=== PATIENT | male | born 1935 | race Caucasian/White ===

== ENCOUNTER 2017-07-28 19:44 | Emergency (ER) | payer OTHER ==
[2017-07-28 20:00] VITALS: BP 150/70; PULSE 76; TEMP 98; BMI 28.2
[2017-07-28] MEDS ORDERED: DIPHTH,PERTUSS(ACELL),TET 0.5 ML DISP.SYRIN IM ONE (21:46)
--- NOTE | 2017-07-28 21:52 | PDOC ---
History of Present Illness - General Chief Complaint: Wound Stated Complaint: WOUND Time Seen by Provider: 07/28/17 21:20 History Source: Patient Exam Limitations: No Limitations - History of Present Illness Initial Comments: 07/28/17 21:51 This is an 82-year-old male without significant past medical history who presents to the emergency department with thermal burn sustained to the webbing of his left hand between the fourth and fifth digits. Patient states that approximately 10 days ago he was using acetylene torch cutting metal with hot metal fell into his glove and caught in the webbing between his fingers. He applied ice cold water to the wound immediately and thought things were get better so did not seek Care. Patient now complains of increased pain to burn site. He denies any drainage, redness, fevers, chills, streaking. Past History - Past Medical History Allergies/Adverse Reactions: Allergies Allergy/AdvReac Type Severity Reaction Status Date / Time Sulfa (Sulfonamide Allergy Verified 07/28/17 19:55 Antibiotics) Home Medications: Ambulatory Orders Lisinopril [Zestril] 2.5 mg PO BID 11/08/11 Simvastatin 20 mg PO HS 11/08/11 Allopurinol [Zyloprim -] 100 mg PO PRN PRN 01/16/15 Anemia: No Asthma: No Cancer: Yes (BLADDER) Cardiac Disorders: No CVA: No COPD: No CHF: No Dementia: No Diabetes: No GI Disorders: No Disorders: Yes (BLADDER CA) HTN: Yes Hypercholesterolemia: Yes Liver Disease: No Seizures: No Thyroid Disease: No Other medical history: rheumatic fever as a child - Surgical History Abdominal Surgery: No Appendectomy: No Cardiac Surgery: No Cholecystectomy: No Lung Surgery: No Neurologic Surgery: No Orthopedic Surgery: No - Immunization History Immunization Up to Date: No - Suicide/Smoking/Psychosocial Hx Smoking Status: No Smoking History: Former smoker Years of Tobacco Use: 40 Have you smoked in the past 12 months: No Number of Cigarettes Smoked Daily: 0 If you are a former smoker, when did you quit?: 2005 Cigars Per Day: 5 Information on smoking cessation initiated: No Hx Alcohol Use: No Drug/Substance Use Hx: No Substance Use Type: None Hx Substance Use Treatment: No Review of Systems - Review of Systems Able to Perform ROS?: Yes Is the patient limited Ivorian proficient: No Constitutional: No: Symptoms Reported HEENTM: No: Symptoms Reported Respiratory: No: Symptoms reported Cardiac (ROS): No: Symptoms Reported ABD/GI: No: Symptoms Reported : No: Symptoms Reported Musculoskeletal: No: Symptoms Reported Integumentary: Yes: See HPI Neurological: No: Symptoms reported *Physical Exam - Vital Signs Last Vital Signs Temp Pulse Resp BP Pulse Ox 98 F 76 18 150/70 98 07/28/17 19:58 07/28/17 19:58 07/28/17 19:58 07/28/17 19:58 07/28/17 19:58 - Physical Exam General Appearance: Yes: Appropriately Dressed. No: Apparent Distress Respiratory/Chest: positive: Lungs Clear, Normal Breath Sounds. negative: Respiratory Distress, Accessory Muscle Use Integumentary: positive: Normal Color, Dry, Warm, Other (resolving thermal burn to webbing of left hand between 4th and 5th digits. No streaking, erythema, drainagepresent.) Medical Decision Making - Medical Decision Making 07/28/17 21:54 A/P: 82-year-old male without past medical history with thermal burn sustained to the webbing of his left hand between fourth and fifth digits. Superficial thermal burn sustained 10 days ago present. No drainage or discharge from site. No erythema present. No streaking noted to palmar or dorsal surface of the hand. Patient is ALLERGIC to sulfa therefore will apply polymyxin dressing to hand. Tetanus booster Follow-up with primary doctor as an outpatient Discharge *DC/Admit/Observation/Transfer Diagnosis at time of Disposition: Thermal burn - Discharge Dispostion Disposition: HOME Condition at time of disposition: Stable Admit: No - Referrals Referrals: Cl Bales MD [Primary Care Provider] - - Patient Instructions Additional Instructions: Apply polymyxin ointment to hand twice a day. Although apply a thin layer to the area. After you apply polymyxin, cover the wound. You received a tetanus booster today. Make an appointment with your primary doctor for follow-up in 3 days. Return to emergency department for increased pain, redness, swelling, inability to move fingers, or any other concerns. - Post Discharge Activity
[2017-07-29] MEDS ORDERED: BACITRACIN/POLYMYXIN B SULFATE 15 GM TUBE TP ONE (21:49)
== END 2017-07-28 22:10 | disposition home or self-care (01) ==
LOC: JERFT 19:44
PROC: 3E0234Z Introduction of Serum, Toxoid and Vaccine into Muscle, Percutaneous Approach (ICD-10-PCS; principal; 2017-07-28)
PROC: 2W2FX4Z Dressing of Left Hand using Bandage (ICD-10-PCS; 2017-07-28)
DX: T23.002A Burn of unspecified degree of left hand, unspecified site, initial encounter (principal); X17.XXXA Contact with hot engines, machinery and tools, initial encounter; Y93.H3 Activity, building and construction; Y92.89 Other specified places as the place of occurrence of the external cause; Y99.8 Other external cause status
CPT/HCPCS: 16020; 90471; 90715; 99281-25

== ENCOUNTER 2019-04-13 17:28 | Emergency (ER) | payer OTHER ==
--- NOTE | 2019-04-13 17:40 | PDOC ---
Rapid Medical Evaluation Time Seen by Provider: 04/13/19 17:37 Medical Evaluation: Allergies Allergy/AdvReac Type Severity Reaction Status Date / Time Sulfa (Sulfonamide Allergy Verified 07/28/17 19:55 Antibiotics) 04/13/19 17:37 CC: right flank pain s/p direct trauma 04/10 PE: right flank tenderness Orders: urine, sono Patient will proceed to ED for further evaluation. Discharge Disposition - Diagnosis Flank pain - Referrals - Patient Instructions - Post Discharge Activity
[2019-04-13 17:47] VITALS: BP 148/98; PULSE 70; TEMP 98.2; BMI 25.8
[2019-04-13 18:21] LABS: EPI CELLS 1.8 /HPF (0-5/HPF); HYALINE CASTS 10 /lpf (0-8); PH,URINE 5.5 (5.0-8.0); URINE APPEARANCE TURBID; URINE BACTERIA 24.9 /hpf (NEGATIVE); URINE BILIRUBIN NEGATIVE (NEGATIVE); URINE COLOR YELLOW; URINE GLUCOSE (UA) NEGATIVE (NEGATIVE); URINE KETONE NEGATIVE (NEGATIVE); URINE LEUK ESTERASE 3+ (NEGATIVE); URINE NITRITE NEGATIVE (NEGATIVE); URINE PROTEIN 2+ (NEGATIVE); URINE UROBILINOGEN 0.2 mg/dL (0.2-1.0); URINE WBC 2539 /hpf (0-5)
[2019-04-13 18:49] LABS: URINE RBC 427.5 /hpf (0-4)
[2019-04-13 19:10] LABS: EOS % 3.8 % (0-4.5); HEMOGLOBIN 13.6 GM/dL (11.7-16.9); MCH 30.8 pg (25.7-33.7); MCHC 33.2 g/dl (32.0-35.9); MEAN CELL VOLUME 92.7 fl (80-96); MEAN PLT VOLUME 9.1 fl (7.5-11.1); MONO % 11.2 % (3.8-10.2); PLATELET COUNT 180 K/MM3 (134-434); RBC 4.43 M/mm3 (4.00-5.60); RDW 12.9 % (11.9-15.9); WHITE BLOOD COUNT 8.9 K/mm3 (4.0-10.0)
[2019-04-13 20:12] LABS: ALBUMIN 3.8 g/dl (3.4-5.0); BILIRUBIN,TOTAL 0.4 mg/dL (0.2-1); BLOOD UREA NITROGEN 20.5 mg/dL (7-18); CALCIUM 8.9 mg/dL (8.5-10.1); CREATININE 1.5 mg/dL (0.55-1.3); POTASSIUM 4.4 mmol/L (3.5-5.1); TOT PROT 7.5 g/dl (6.4-8.2)
--- NOTE | 2019-04-13 20:40 | PDOC ---
History of Present Illness - General Chief Complaint: Back Pain Stated Complaint: R/LOWER/BACK/PAIN Time Seen by Provider: 04/13/19 17:37 - History of Present Illness Initial Comments: 04/13/19 22:01 83-year-old male with a past medical history significant of dyslipidemia and hypertension also distant history of bladder cancer presents for evaluation of right-sided flank pain. He states about 2 days ago he was in a golf cart which almost tripped over in the process he had his right flank into the bar of the golf cart which acted as a handle of his seat. No hematuria. The patient has intermittent right-sided flank pain relieved with warm baths and rest exacerbated with activity. Past History - Past Medical History Allergies/Adverse Reactions: Allergies Allergy/AdvReac Type Severity Reaction Status Date / Time Sulfa (Sulfonamide Allergy Verified 04/13/19 17:38 Antibiotics) Home Medications: Ambulatory Orders Lisinopril [Zestril] 2.5 mg PO BID 11/08/11 Simvastatin 20 mg PO HS 11/08/11 Allopurinol [Zyloprim -] 100 mg PO PRN PRN 01/16/15 Cyclobenzaprine HCl [Flexeril 10 mg] 10 mg PO HS PRN #10 tablet 04/13/19 Anemia: No Asthma: No Cancer: Yes (BLADDER) Cardiac Disorders: No CVA: No COPD: No CHF: No Dementia: No Diabetes: No GI Disorders: No Disorders: Yes (BLADDER CA) HTN: Yes Hypercholesterolemia: Yes Liver Disease: No Seizures: No Thyroid Disease: No - Surgical History Abdominal Surgery: No Appendectomy: No Cardiac Surgery: No Cholecystectomy: No Lung Surgery: No Neurologic Surgery: No Orthopedic Surgery: No - Immunization History Immunization Up to Date: Yes - Psycho Social/Smoking Cessation Hx Smoking Status: No Smoking History: Never smoked Years of Tobacco Use: 40 Have you smoked in the past 12 months: No Number of Cigarettes Smoked Daily: 0 If you are a former smoker, when did you quit?: 2004 Cigars Per Day: 5 Hx Alcohol Use: No Drug/Substance Use Hx: No Substance Use Type: None Hx Substance Use Treatment: No Review of Systems - Review of Systems Musculoskeletal: Yes: Back Pain *Physical Exam - Vital Signs Last Vital Signs Temp Pulse Resp BP Pulse Ox 98.2 F 70 17 148/98 95 04/13/19 17:38 04/13/19 17:38 04/13/19 17:38 04/13/19 17:38 04/13/19 19:59 - Physical Exam Comments: 04/13/19 22:02 GENERAL: The patient is awake, alert, and fully oriented, in no acute distress. HEAD: Normal with no signs of trauma. EYES: sclera anicteric, conjunctiva clear. ENT: Ears normal NECK: Normal range of motion LUNGS: Breath sounds equal, clear to auscultation bilaterally. No wheezes, and no crackles. HEART: S1 and S2 without murmur, rub or gallop. ABDOMEN: Soft, nontender, normoactive bowel sounds. No guarding, no rebound. No masses. There is mild right-sided flank pain and muscular spasm. EXTREMITIES: Normal range of motion, no edema. No clubbing or cyanosis. No cords, erythema, or tenderness. NEUROLOGICAL: Cranial nerves II through XII grossly intact. Normal speech, normal gait. PSYCH: Normal mood, normal affect. SKIN: Warm, Dry, normal turgor, no rashes or lesions noted. ED Treatment Course - LABORATORY CBC & Chemistry Diagram: 04/13/19 19:00 04/13/19 19:00 - ADDITIONAL ORDERS Additional order review: Laboratory Results 04/13/19 04/13/19 19:00 17:58 Sodium 143 Potassium 4.4 Chloride 108 H Carbon Dioxide 30 Anion Gap 5 L BUN 20.5 H Creatinine 1.5 H Est GFR (CKD-EPI)AfAm 49.89 Est GFR (CKD-EPI)NonAf 43.04 Random Glucose 174 H Calcium 8.9 Total Bilirubin 0.4 AST 20 ALT 14 Alkaline Phosphatase 79 Total Protein 7.5 Albumin 3.8 Urine Color Yellow Urine Appearance Turbid Urine pH 5.5 Ur Specific [place] 1.017 Urine Protein 2+ H Urine Glucose (UA) Negative Urine Ketones Negative Urine Blood 3+ H Urine Nitrite Negative Urine Bilirubin Negative Urine Urobilinogen 0.2 Ur Leukocyte Esterase 3+ H Urine WBC (Auto) 2539 Urine RBC (Auto) 427.5 Urine Casts (Auto) 10 U Epithel Cells (Auto) 1.8 Urine Bacteria (Auto) 24.9 04/13/19 19:00 RBC 4.43 MCV 92.7 MCHC 33.2 RDW 12.9 MPV 9.1 Neutrophils % 59.0 Lymphocytes % 25.0 Monocytes % 11.2 H Eosinophils % 3.8 Basophils % 1.0 - RADIOLOGY Radiology Studies Ordered: Category Date Time Status ABDOMEN & PELVIS CT WITH CONTR [CT] Stat CT Scan 04/13/19 18:[address] WITH CONTRAST [CT] Stat CT Scan 04/13/19 18:40 Taken CHEST - PA [RAD] Stat Radiology 04/13/19 18:07 Completed RIBS RIGHT SIDE [RAD] Stat Radiology 04/13/19 18:07 Completed Medical Decision Making - Medical Decision Making 04/13/19 20:40 Discussed case with emergency room attending. GFR normal patient okay to receive IV contrast. 04/13/19 22:03 Patient was made aware CAT scan results he will follow-up with his primary care physician. Discharge - Discharge Information Problems reviewed: Yes Clinical Impression/Diagnosis: Flank pain, Contusion, flank Condition: Stable Disposition: HOME - Admission No - Follow up/Referral Referrals: Cl Bales MD [Primary Care Provider] - - Patient Discharge Instructions Additional Instructions: Return to the emergency room for worsening symptoms. Continue your regular medication as directed. Please follow-up with your primary care physician for further evaluation and treatment options. Tylenol for pain. Muscle relaxer will also help with your pain. Please take that as directed. - Post Discharge Activity
== END 2019-04-13 22:10 | disposition home or self-care (01) ==
LOC: JER 17:28 → JERFT 17:28
DX: S30.1XXA Contusion of abdominal wall, initial encounter (principal); V86.99XA Unspecified occupant of other special all-terrain or other off-road motor vehicle injured in nontraffic accident, initial encounter; Y93.53 Activity, golf; Y92.39 Other specified sports and athletic area as the place of occurrence of the external cause; Y99.8 Other external cause status; I10 Essential (primary) hypertension; E78.00 Pure hypercholesterolemia, unspecified; Z85.51 Personal history of malignant neoplasm of bladder; Z88.2 Allergy status to sulfonamides
CPT/HCPCS: 36415; 71045-TC-FY; 71101-TC-RT-FY; 71260-TC; 74177-TC; 80053; 81003; 85025; 99283-25

== ENCOUNTER 2019-05-06 12:55 | Emergency (ER) | payer OTHER ==
[2019-05-06 13:08] VITALS: PULSE 62; BMI 25.8
[2019-05-06] MEDS ORDERED: DIPHTH,PERTUSS(ACELL),TET 0.5 ML DISP.SYRIN IM ONE ×2 (13:22→13:26)
--- NOTE | 2019-05-06 14:36 | PDOC ---
History of Present Illness - General Chief Complaint: Laceration Stated Complaint: RT HEAD/EAR CUT Time Seen by Provider: 05/06/19 13:14 - History of Present Illness Initial Comments: 05/06/19 14:40 84-year-old male with a past medical history of hypertension and dyslipidemia presents after a fall. States he fell while getting into his truck injuring his right ear Past History - Past Medical History Allergies/Adverse Reactions: Allergies Allergy/AdvReac Type Severity Reaction Status Date / Time Sulfa (Sulfonamide Allergy Verified 05/06/19 13:08 Antibiotics) Home Medications: Ambulatory Orders Lisinopril [Zestril] 2.5 mg PO BID 11/08/11 Simvastatin 20 mg PO HS 11/08/11 Allopurinol [Zyloprim -] 100 mg PO PRN PRN 01/16/15 Cyclobenzaprine HCl [Flexeril 10 mg] 10 mg PO HS PRN #10 tablet 04/13/19 Anemia: No Asthma: No Cancer: Yes (BLADDER) Cardiac Disorders: No CVA: No COPD: No CHF: No Dementia: No Diabetes: No GI Disorders: No Disorders: Yes (BLADDER CA) HTN: Yes Hypercholesterolemia: Yes Liver Disease: No Seizures: No Thyroid Disease: No - Surgical History Abdominal Surgery: No Appendectomy: No Cardiac Surgery: No Cholecystectomy: No Lung Surgery: No Neurologic Surgery: No Orthopedic Surgery: No - Immunization History Immunization Up to Date: No - Psycho Social/Smoking Cessation Hx Smoking Status: No Smoking History: Never smoked Years of Tobacco Use: 40 Have you smoked in the past 12 months: No Number of Cigarettes Smoked Daily: 0 If you are a former smoker, when did you quit?: 2005 Cigars Per Day: 5 Information on smoking cessation initiated: No Hx Alcohol Use: No Drug/Substance Use Hx: No Substance Use Type: None Hx Substance Use Treatment: No Review of Systems - Review of Systems HEENTM: Yes: Ear Pain *Physical Exam - Vital Signs Last Vital Signs Temp Pulse Resp BP Pulse Ox 98.0 F 62 16 98/78 100 05/06/19 13:04 05/06/19 13:04 05/06/19 13:04 05/06/19 13:04 05/06/19 13:04 - Physical Exam Comments: 05/06/19 14:40 GENERAL: The patient is awake, alert, and fully oriented, in no acute distress. HEAD: Normal with no signs of trauma. EYES: sclera anicteric, conjunctiva clear. ENT: There is a through and through laceration of the left pinna NECK: Normal range of motion LUNGS: Breath sounds equal, clear to auscultation bilaterally. No wheezes, and no crackles. HEART: S1 and S2 without murmur, rub or gallop. ABDOMEN: Soft, nontender, normoactive bowel sounds. No guarding, no rebound. No masses. EXTREMITIES: Normal range of motion, no edema. No clubbing or cyanosis. No cords, erythema, or tenderness. NEUROLOGICAL: Cranial nerves II through XII grossly intact. Normal speech, normal gait. PSYCH: Normal mood, normal affect. SKIN: Warm, Dry, normal turgor, no rashes or lesions noted. ED Treatment Course - RADIOLOGY Radiology Studies Ordered: Category Date Time Status HEAD CT WITHOUT CONTRAST [CT] Stat CT Scan 05/06/19 13:21 Completed - Medications Given in the ED: ED Medications Discontinued Medications Generic Name Dose Route Start Last Admin Trade Name Freq PRN Reason Stop Dose Admin Diphtheria/Tetanus/Acell Pertussis 0.5 ml 05/06/19 13:22 05/06/19 13:26 Boostrix - IM 05/06/19 13:23 0.5 ml .ONCE ONE Administration Medical Decision Making - Medical Decision Making 05/06/19 14:32 [facility] transfer center called transfer from plastic surgery 05/06/19 14:39 Dr Hou accepting plastics at [facility] Discharge - Discharge Information Problems reviewed: Yes Clinical Impression/Diagnosis: Laceration of right ear Condition: Stable Disposition: TRANSFER ACUTE CARE/OTHER HOSP - Admission No - Follow up/Referral Referrals: Cl Bales MD [Primary Care Provider] - - Patient Discharge Instructions - Post Discharge Activity
[2019-05-06 15:43] VITALS: BP 134/82; TEMP 98.1
== END 2019-05-06 15:49 | disposition short-term general hospital (02) ==
LOC: JERFT 12:55
PROC: 3E0234Z Introduction of Serum, Toxoid and Vaccine into Muscle, Percutaneous Approach (ICD-10-PCS; principal; 2019-05-06)
DX: S01.311A Laceration without foreign body of right ear, initial encounter (principal); W18.39XA Other fall on same level, initial encounter; Y93.89 Activity, other specified; Y92.410 Unspecified street and highway as the place of occurrence of the external cause; E78.5 Hyperlipidemia, unspecified; I10 Essential (primary) hypertension; Z87.891 Personal history of nicotine dependence; E78.00 Pure hypercholesterolemia, unspecified; Z85.51 Personal history of malignant neoplasm of bladder
CPT/HCPCS: 70450-TC; 90715; 99283-25

== ENCOUNTER 2019-05-13 16:26 | Emergency (ER) | payer OTHER ==
--- NOTE | 2019-05-13 16:41 | PDOC ---
Rapid Medical Evaluation Time Seen by Provider: 05/13/19 16:39 Medical Evaluation: Allergies Allergy/AdvReac Type Severity Reaction Status Date / Time Sulfa (Sulfonamide Allergy Verified 05/06/19 13:08 Antibiotics) 05/13/19 16:40 Patient c/o: here for suture removal to right ear Patient on brief exam: noted complex lac with sutures to rt pinna, surrounding skin intact Patient ordered for: none Patient to proceed to the ED Discharge Disposition - Diagnosis Visit for wound check - Discharge Dispostion Disposition: HOME Condition at time of disposition: Stable - Referrals Referrals: Cl Bales MD [Primary Care Provider] - - Patient Instructions Additional Instructions: Return to plastic surgery where the sutures were placed for further wound care management. You may return to the emergency room at any time for further evaluation and treatment should you require our services however these sutures appear to be absorbable and are unable to be removed in this emergency room - Post Discharge Activity
[2019-05-13 16:44] VITALS: BP 130/61; PULSE 78; TEMP 97.8; BMI 25.8
--- NOTE | 2019-05-13 17:03 | PDOC ---
History of Present Illness - General Chief Complaint: Suture/Staple Removal (other) Stated Complaint: STITCHES REMOVAL Time Seen by Provider: 05/13/19 16:39 - History of Present Illness Initial Comments: 05/13/19 17:01 84-year-old male seen in our emergency room last week and transferred for plastic surgery purposes presents for suture removal from the right ear. Sutures placed 7 days ago Past History - Past Medical History Allergies/Adverse Reactions: Allergies Allergy/AdvReac Type Severity Reaction Status Date / Time Sulfa (Sulfonamide Allergy Verified 05/13/19 16:43 Antibiotics) Home Medications: Ambulatory Orders Lisinopril [Zestril] 2.5 mg PO BID 11/08/11 Simvastatin 20 mg PO HS 11/08/11 Allopurinol [Zyloprim -] 100 mg PO PRN PRN 01/16/15 Cyclobenzaprine HCl [Flexeril 10 mg] 10 mg PO HS PRN #10 tablet 04/13/19 Anemia: No Asthma: No Cancer: Yes (BLADDER) Cardiac Disorders: No CVA: No COPD: No CHF: No Dementia: No Diabetes: No GI Disorders: No Disorders: Yes (BLADDER CA) HTN: Yes Hypercholesterolemia: Yes Liver Disease: No Seizures: No Thyroid Disease: No - Surgical History Abdominal Surgery: No Appendectomy: No Cardiac Surgery: No Cholecystectomy: No Lung Surgery: No Neurologic Surgery: No Orthopedic Surgery: No - Immunization History Immunization Up to Date: No - Psycho Social/Smoking Cessation Hx Smoking Status: No Smoking History: Never smoked Years of Tobacco Use: 40 Have you smoked in the past 12 months: No Number of Cigarettes Smoked Daily: 0 If you are a former smoker, when did you quit?: 2005 Cigars Per Day: 5 Information on smoking cessation initiated: No Hx Alcohol Use: No Drug/Substance Use Hx: No Substance Use Type: None Hx Substance Use Treatment: No Review of Systems - Review of Systems Constitutional: No: Fever *Physical Exam - Vital Signs Last Vital Signs Temp Pulse Resp BP Pulse Ox 97.8 F 78 19 130/61 99 05/13/19 16:40 05/13/19 16:40 05/13/19 16:40 05/13/19 16:40 05/13/19 16:40 - Physical Exam 05/13/19 17:01 There is a longitudinal laceration on the right pinna. There are no visible sutures there appears to be Monocryl peaking out from under the skin 05/13/19 17:02 The wound however is healing well with normal surrounding skin color and temperature Medical Decision Making - Medical Decision Making 05/13/19 17:01 The sutures appear to be absorbable there are no details the grabber knots the cut that are visible. I have sent this patient back to plastic surgery at [facility] where sutures were placed Discharge - Discharge Information Problems reviewed: Yes Clinical Impression/Diagnosis: Visit for wound check Condition: Stable Disposition: HOME - Admission No - Follow up/Referral Referrals: Cl Bales MD [Primary Care Provider] - - Patient Discharge Instructions Additional Instructions: Return to plastic surgery where the sutures were placed for further wound care management. You may return to the emergency room at any time for further evaluation and treatment should you require our services however these sutures appear to be absorbable and are unable to be removed in this emergency room - Post Discharge Activity
== END 2019-05-13 17:09 | disposition home or self-care (01) ==
LOC: JERFT 16:26
DX: Z48.01 Encounter for change or removal of surgical wound dressing (principal)
CPT/HCPCS: 99281-25

== ENCOUNTER 2019-05-26 10:32 | Emergency (ER) | payer OTHER ==
[2019-05-26 10:56] VITALS: TEMP 98.5; BMI 25.4
--- NOTE | 2019-05-26 11:48 | PDOC ---
History of Present Illness - General Chief Complaint: Ear Problem Stated Complaint: WOUND/EAR PROBLEM Time Seen by Provider: 05/26/19 10:59 - History of Present Illness Initial Comments: 05/26/19 11:46 84-year-old male presents for evaluation of right ear pain. Seen for through and through laceration transferred to [facility] for plastic surgery he was repaired with dissolvable sutures he comes today for suspected infection. Increasing pain over the last 2 days without systemic symptoms Past History - Past Medical History Allergies/Adverse Reactions: Allergies Allergy/AdvReac Type Severity Reaction Status Date / Time Sulfa (Sulfonamide Allergy Verified 05/26/19 10:53 Antibiotics) Home Medications: Ambulatory Orders Lisinopril [Zestril] 2.5 mg PO BID 11/08/11 Simvastatin 20 mg PO HS 11/08/11 Allopurinol [Zyloprim -] 100 mg PO PRN PRN 01/16/15 Cyclobenzaprine HCl [Flexeril 10 mg] 10 mg PO HS PRN #10 tablet 04/13/19 Clindamycin Oral Solution [Cleocin Oral Solution -] 300 mg PO Q8H 7 Days #280 ml 05/26/19 Anemia: No Asthma: No Cancer: Yes (BLADDER) Cardiac Disorders: No CVA: No COPD: No CHF: No Dementia: No Diabetes: No GI Disorders: No Disorders: Yes (BLADDER CA) HTN: Yes Hypercholesterolemia: Yes Liver Disease: No Seizures: No Thyroid Disease: No - Surgical History Abdominal Surgery: No Appendectomy: No Cardiac Surgery: No Cholecystectomy: No Lung Surgery: No Neurologic Surgery: No Orthopedic Surgery: No - Immunization History Immunization Up to Date: No - Psycho Social/Smoking Cessation Hx Smoking Status: No Smoking History: Never smoked Years of Tobacco Use: 40 Have you smoked in the past 12 months: No Number of Cigarettes Smoked Daily: 0 If you are a former smoker, when did you quit?: 2004 Cigars Per Day: 5 Hx Alcohol Use: No Drug/Substance Use Hx: No Substance Use Type: None Hx Substance Use Treatment: No Review of Systems - Review of Systems Constitutional: No: Fever HEENTM: Yes: Ear Pain *Physical Exam - Vital Signs Last Vital Signs Temp Pulse Resp BP Pulse Ox 98.5 F 60 16 145/50 L 98 05/26/19 10:54 05/26/19 10:54 05/26/19 10:54 05/26/19 10:54 05/26/19 10:54 - Physical Exam 05/26/19 11:47 The right pinna is healing well. There is exposed Monocryl mild erythema warmth and induration. Mild sensitivity. Your canal and tympanic membrane are normal Medical Decision Making - Medical Decision Making 05/26/19 11:47 Patient did have a postop course of Augmentin which he stopped and restarted I will place him on clindamycin and have him follow-up with his surgeon Discharge - Discharge Information Problems reviewed: Yes Clinical Impression/Diagnosis: Cellulitis Condition: Stable Disposition: HOME - Admission No - Additional Discharge Information Prescriptions: Clindamycin Oral Solution [Cleocin Oral Solution -] 300 mg PO Q8H 7 Days #280 ml - Follow up/Referral - Patient Discharge Instructions Additional Instructions: Please take the clindamycin as directed. Return to the emergency room for worsening symptoms and without fail please follow-up with your ear surgeon in 2 to 3 days for further evaluation and treatment options. - Post Discharge Activity
[2019-05-26 12:22] VITALS: BP 142/57; PULSE 63
== END 2019-05-26 12:22 | disposition home or self-care (01) ==
LOC: JERFT 10:32
DX: Z48.01 Encounter for change or removal of surgical wound dressing (principal); L03.90 Cellulitis, unspecified; Z88.2 Allergy status to sulfonamides; Z87.891 Personal history of nicotine dependence
CPT/HCPCS: 99281-25

== ENCOUNTER 2019-06-03 04:48 | Emergency (ER) | payer OTHER ==
[2019-06-03 05:10] VITALS: BP 147/68; PULSE 74; TEMP 98.3; BMI 25.8
--- NOTE | 2019-06-03 06:10 | PDOC ---
*Physical Exam - Vital Signs Last Vital Signs Temp Pulse Resp BP Pulse Ox 98.3 F 74 18 147/68 95 06/03/19 05:07 06/03/19 05:07 06/03/19 05:07 06/03/19 05:07 06/03/19 05:07 Medical Decision Making - Medical Decision Making 06/03/19 06:10 Patient seen by the advanced practice provider under my direct supervision. Ancillary testing reviewed as necessary. I agree with plan as outlined by the advanced practice provider. Discharge - Discharge Information Problems reviewed: Yes Clinical Impression/Diagnosis: Periorbital cellulitis of left eye Condition: Stable Disposition: HOME - Additional Discharge Information Prescriptions: Allopurinol [Zyloprim -] 100 mg PO DAILY #20 tab Olopatadine HCl 2.5 ml OP BID #1 kit Simvastatin 20 mg PO DAILY #15 tablet - Follow up/Referral Referrals: Cl Bales MD [Primary Care Provider] - - Patient Discharge Instructions Patient Printed Discharge Instructions: DI for Orbital Cellulitis Additional Instructions: Your Discharge Instructions: You must call primary care physician within 24 hours to arrange follow-up. Return to the Emergency Department with any new, persistent or worsening symptoms, for fever, chills, SOB, dizziness or any other concerning changes that may occur. You must follow-up with an authorization rep in 24 to 48 hours. Use the eyedrops as prescribed take some Benadryl for the itching if symptoms are worsening, you need the authorization rep immediately. - Post Discharge Activity
[2019-06-03] MEDS ORDERED: FLUORESCEIN NA 1 EA STRIP OS ONE (06:14)
--- NOTE | 2019-06-03 06:14 | PDOC ---
History of Present Illness - General Chief Complaint: Eye Problem Stated Complaint: EAR INFECTION History Source: Patient Exam Limitations: No Limitations - History of Present Illness Initial Comments: 06/03/19 05:57 Patient is a 84 year old male with h/o HTN, HLD, gout, prediabetes, cataract left eye surgery c/o right ear pain and left periorbial swelling. States he was injury to the right ear with in 05/03/19 was sutured at [facility] by Plastic surgery and was on antibx but did not complete the coursed. Retuned to the ED and was admitted but symptoms worsened. Saw the plastic surgery 1 week ago and started on Cipro 05/29/19 but continued to take the liquid antibx until 2 days then started the Cipro and mupirocin. He has been having swelling perioribial x 2 days, but today the eye symptoms got worse has been having burning and itching, (+) twiching, discharge from the eye. Patient states no pain. States has good vision does wear glasses. PMD: Dr. Currie PMHX: as above PSOCHX: neg cig, neg drug, neg etoh ALL: Sulfa GENERAL/CONSTITUTIONAL: [No fever or chills. No weakness. No weight change.] HEAD, EYES, EARS, NOSE AND THROAT: [No change in vision. (+) ear pain or discharge. No sore throat.] CARDIOVASCULAR: [No chest pain or shortness of breath.] RESPIRATORY: [No cough, wheezing, or hemoptysis.] GASTROINTESTINAL: [No nausea, vomiting, diarrhea or constipation. No rectal bleeding.] GENITOURINARY: [No dysuria, frequency, or change in urination.] MUSCULOSKELETAL: [No joint or muscle swelling or pain. No neck or back pain.] SKIN AND BREASTS: [(+) rash, (-) easy bruising.] NEUROLOGIC: [No headache, vertigo, loss of consciousness, or loss of sensation.] PSYCHIATRIC: [No depression or anxiety.] ENDOCRINE: [No increased thirst. No abnormal weight change.] HEMATOLOGIC/LYMPHATIC: [No anemia, easy bleeding, or history of blood clots.] ALLERGIC/IMMUNOLOGIC: [No hives or skin allergy. No latex allergy.] GENERAL: [The patient is awake, alert, and fully oriented, in mild distress.] HEAD: [Normal with no signs of trauma.] EYES: [Pupils equal, round and reactive to light, extraocular movements intact, sclera anicteric, conjunctiva clear, clear discharge from the left eye, (+) periorbital swelling, small abrasions to the upper lid left eye.] VA 20/40 both eyes, fluorescein no uptake left eye. ENT: [Ears TM normal, nares patent, oropharynx clear without exudates. Moist mucous membranes, nontender mastoid process.] NECK: [Normal range of motion, supple without lymphadenopathy, JVD, or masses.] LUNGS: [Breath sounds equal, clear to auscultation bilaterally. No wheezes, and no crackles.] HEART: [Regular rate and rhythm, normal S1 and S2 without murmur, rub.] ABDOMEN: [Soft, nontender, normoactive bowel sounds. No guarding, no rebound. No masses.] EXTREMITIES: [Normal range of motion, no edema. No clubbing or cyanosis. No cords, erythema, or tenderness.] NEUROLOGICAL: [Cranial nerves II through XII grossly intact. Normal speech, normal gait.] PSYCH: [Normal mood, normal affect.] SKIN: [Warm, Dry, normal turgor, dry scaly rashes posterior right ear, bilateral lids, or lesions noted.] Past History - Past Medical History Allergies/Adverse Reactions: Allergies Allergy/AdvReac Type Severity Reaction Status Date / Time Sulfa (Sulfonamide Allergy Verified 06/03/19 05:10 Antibiotics) Home Medications: Ambulatory Orders Lisinopril [Zestril] 2.5 mg PO BID 11/08/11 Simvastatin 20 mg PO HS 11/08/11 Allopurinol [Zyloprim -] 100 mg PO PRN PRN 01/16/15 Cyclobenzaprine HCl [Flexeril 10 mg] 10 mg PO HS PRN #10 tablet 04/13/19 Clindamycin Oral Solution [Cleocin Oral Solution -] 300 mg PO Q8H 7 Days #280 ml 05/26/19 Allopurinol [Zyloprim -] 100 mg PO DAILY #20 tab 06/03/19 Olopatadine HCl 2.5 ml OP BID #1 kit 06/03/19 Simvastatin 20 mg PO DAILY #15 tablet 06/03/19 Anemia: No Asthma: No Cancer: Yes (BLADDER) Cardiac Disorders: No CVA: No COPD: No CHF: No Dementia: No Diabetes: No GI Disorders: No Disorders: Yes (BLADDER CA) HTN: Yes Hypercholesterolemia: Yes Liver Disease: No Seizures: No Thyroid Disease: No - Surgical History Abdominal Surgery: No Appendectomy: No Cardiac Surgery: No Cholecystectomy: No Lung Surgery: No Neurologic Surgery: No Orthopedic Surgery: No - Immunization History Immunization Up to Date: No - Psycho Social/Smoking Cessation Hx Smoking Status: No Smoking History: Unknown if ever smoked Years of Tobacco Use: 40 Have you smoked in the past 12 months: No Number of Cigarettes Smoked Daily: 0 If you are a former smoker, when did you quit?: 2004 Cigars Per Day: 5 Hx Alcohol Use: No Drug/Substance Use Hx: No Substance Use Type: None Hx Substance Use Treatment: No *Physical Exam - Vital Signs Last Vital Signs Temp Pulse Resp BP Pulse Ox 98.3 F 74 18 147/68 95 06/03/19 05:07 06/03/19 05:07 06/03/19 05:07 06/03/19 05:07 06/03/19 05:07 Medical Decision Making - Medical Decision Making 06/03/19 05:57 Patient is a 84 year old male with h/o HTN, HLD, gout, prediabetes, cataract left eye surgery c/o right ear pain and left periorbial swelling. States he was injury to the right ear with in 05/03/19 was sutured at [facility] by Plastic surgery and was on antibx but did not complete the coursed. Retuned to the ED and was admitted but symptoms worsened. Saw the plastic surgery 1 week ago and started on Cipro 05/29/19 but continued to take the liquid antibx until 2 days then started the Cipro and mupirocin. He has been having swelling perioribial x 2 days, but today the eye symptoms got worse has been having burning and itching, (+) twiching, discharge from the eye. Patient states no pain. States has good vision does wear glasses. Patient was seen with the attending Dr. Reece Recommended Patanol eyedrops for the eye, continue Benadryl and antibiotics Cipro. I discussed the physical exam findings, ancillary test results and final diagnoses with the patient. I answered all of the patient's questions. The patient was satisfied with the care received and felt comfortable with the discharge plan and treatment plan. The Patient agrees to follow up with the primary care physician within 24-72 hours. Discharge - Discharge Information Problems reviewed: Yes Clinical Impression/Diagnosis: Periorbital cellulitis of left eye Condition: Stable Disposition: HOME - Follow up/Referral Referrals: Cl Bales MD [Primary Care Provider] - - Patient Discharge Instructions Patient Printed Discharge Instructions: DI for Orbital Cellulitis Additional Instructions: Your Discharge Instructions: You must call primary care physician within 24 hours to arrange follow-up. Return to the Emergency Department with any new, persistent or worsening symptoms, for fever, chills, SOB, dizziness or any other concerning changes that may occur. You must follow-up with an quality control tech in 24 to 48 hours. Use the eyedrops as prescribed take some Benadryl for the itching if symptoms are worsening, you need the quality control tech immediately. - Post Discharge Activity
[2019-06-03] MEDS ORDERED: FLUORESCEIN NA 1 EA STRIP ONE (06:20)
== END 2019-06-03 06:53 | disposition home or self-care (01) ==
LOC: JER 04:48
PROC: 4A07X0Z Measurement of Visual Acuity, External Approach (ICD-10-PCS; principal; 2019-06-03)
DX: H05.012 Cellulitis of left orbit (principal); I10 Essential (primary) hypertension; E78.5 Hyperlipidemia, unspecified; M10.9 Gout, unspecified; R73.03 Prediabetes; Z88.2 Allergy status to sulfonamides
CPT/HCPCS: 99281-25

== ENCOUNTER 2019-08-08 15:50 | Emergency (ER) | payer BC, OTHER ==
[2019-08-08 16:28] VITALS: BP 129/68; PULSE 67; TEMP 97.5; BMI 25.2
--- NOTE | 2019-08-08 17:02 | PDOC ---
History of Present Illness - General Chief Complaint: Pain Stated Complaint: LF SIDE ABD PAIN Time Seen by Provider: 08/08/19 16:47 History Source: Patient Exam Limitations: No Limitations - History of Present Illness Initial Comments: 08/08/19 16:57 HISTORY OF PRESENT ILLNESS: 84-year-old male with past medical history of hypertension, hyperlipidemia, bladder cancer (remission x15 years) who presents emergency department for evaluation of left-sided rib pain status post trip and fall while at work. Patient reports he was carrying some heavy materials when he tripped on an uneven walkway falling onto his left ribs. He reports the walkway was made of concrete. He reports the incident happened approximately 5 days ago and was concerned that he is continuing to have pain. He denies any shortness of breath, dizziness, nausea or vomiting. No recent travel or sick contacts. PAST MEDICAL HISTORY: See HPI SURGICAL HISTORY: Denies ALLERGIES: Sulfa REVIEW OF SYSTEMS General/Constitutional: Denies fever or chills. Denies weakness, weight change. HEENT: Denies change in vision. Denies ear pain or discharge. Denies sore throat. Cardiovascular: Denies chest pain or shortness of breath. Respiratory: Denies cough, wheezing, or hemoptysis. Gastrointestinal: Denies nausea, vomiting, diarrhea or constipation. Denies rectal bleeding. Genitourinary: Denies dysuria, frequency, or change in urination. Musculoskeletal: See HPI Skin and breasts: Denies rash or easy bruising. Neurologic: Denies headache, vertigo, loss of consciousness, or loss of sensation. Psychiatric: Denies depression or anxiety. Endocrine: Denies increased thirst. Denies abnormal weight change. Hematologic/Lymphatic: Denies anemia, easy bleeding, or history of blood clots. Allergic/Immunologic: Denies hives or skin allergy. Denies latex allergy. PHYSICAL EXAM General Appearance: Well-appearing, appropriately dressed. No apparent distress , no intoxication. HEENT: EOMI, PERRLA, normal ENT inspection, normal voice, TMs normal, pharynx normal. No conjunctival pallor. No photophobia, scleral icterus. Neck: Supple. Trachea midline. No tenderness, rigidity, carotid bruit, stridor , lymphadenopathy, or thyromegaly. Respiratory/Chest: Lungs CTAB. No shortness of breath, respiratory distress, accessory muscle use. No crackles, rales, rhonchi, stridor, wheezing, dullness. Tenderness present over the left anterior ribs #6, 7 and 8. No bruising is noted. No flail chest is seen. Cardiovascular: RRR. S1, S2. No JVD, murmur, bradycardia, tachycardia. Integumentary: Appropriate color, dry, warm. No cyanosis, erythema, jaundice or rash 08/08/19 16:59 Past History - Past Medical History Allergies/Adverse Reactions: Allergies Allergy/AdvReac Type Severity Reaction Status Date / Time Sulfa (Sulfonamide Allergy Verified 06/03/19 05:10 Antibiotics) Home Medications: Ambulatory Orders Lisinopril [Zestril] 2.5 mg PO BID 11/08/11 Simvastatin 20 mg PO HS 11/08/11 Allopurinol [Zyloprim -] 100 mg PO PRN PRN 01/16/15 Cyclobenzaprine HCl [Flexeril 10 mg] 10 mg PO HS PRN #10 tablet 04/13/19 Clindamycin Oral Solution [Cleocin Oral Solution -] 300 mg PO Q8H 7 Days #280 ml 05/26/19 Allopurinol [Zyloprim -] 100 mg PO DAILY #20 tab 06/03/19 Olopatadine HCl 2.5 ml OP BID #1 kit 06/03/19 Simvastatin 20 mg PO DAILY #15 tablet 06/03/19 Anemia: No Asthma: No Cancer: Yes (BLADDER) Cardiac Disorders: No CVA: No COPD: No CHF: No Dementia: No Diabetes: No GI Disorders: No Disorders: Yes (BLADDER CA) HTN: Yes Hypercholesterolemia: Yes Liver Disease: No Seizures: No Thyroid Disease: No - Surgical History Abdominal Surgery: No Appendectomy: No Cardiac Surgery: No Cholecystectomy: No Lung Surgery: No Neurologic Surgery: No Orthopedic Surgery: No - Immunization History Immunization Up to Date: No - Psycho Social/Smoking Cessation Hx Smoking Status: No Smoking History: Never smoked Years of Tobacco Use: 40 Have you smoked in the past 12 months: No Number of Cigarettes Smoked Daily: 0 If you are a former smoker, when did you quit?: 2004 Cigars Per Day: 5 Information on smoking cessation initiated: No Hx Alcohol Use: No Drug/Substance Use Hx: No Substance Use Type: None Hx Substance Use Treatment: No *Physical Exam - Vital Signs Last Vital Signs Temp Pulse Resp BP Pulse Ox 97.5 F L 67 18 129/68 100 08/08/19 16:24 08/08/19 16:24 08/08/19 16:24 08/08/19 16:24 08/08/19 16:24 Medical Decision Making - Medical Decision Making 08/08/19 17:01 A/P: 84-year-old male with left anterior rib pain status post trip and fall Lungs clear to auscultation bilaterally Tenderness to left anterior ribs #6, 7 and 8. No bony tenderness, crepitus, deformity or step-off is noted. No subcutaneous emphysema is present. No flail chest is noted. Left rib series Chest x-ray Patient is refusing pain medication at this time Reassess 08/08/19 17:32 Left rib series is read by me: Fractures present to ribs 6 and 7. Best seen in the oblique view. Chest x-ray as read by me: Angle sharp. Cardiac silhouette is within normal limits. Lung rogers clear without infiltration or consolidation noted. No pneumothorax is seen. Incentive spirometer Discharge home I discussed the physical exam findings, ancillary test results and final diagnoses with the patient. I answered all of the patient's questions. The patient was satisfied with the care received and felt comfortable with the discharge plan and treatment plan. The patient will call their primary care physician within 24 hours to arrange follow-up and will return to the Emergency Department with any new, persistent or worsening symptoms. Portions of this note have been documented using voice recognition software. As a result, errors may occur in the director economic process. Effort has been made to correct all grammatical and director economic error, but some may have been missed which may produce sporadic inaccurate director economic or nonsensical phrases. Discharge - Discharge Information Problems reviewed: Yes Clinical Impression/Diagnosis: Ribs, multiple fractures Qualifiers: Encounter type: initial encounter Fracture type: closed Laterality: left Qualified Code(s): S22.42XA - Multiple fractures of ribs, left side, initial encounter for closed fracture Condition: Stable Disposition: HOME - Admission No - Follow up/Referral Referrals: Cl Bales MD [Primary Care Provider] - - Patient Discharge Instructions Additional Instructions: Use incentive spirometer 10 times every hour. This is once every commercial if watching television. Take Tylenol Motrin as needed for pain. Rest. Apply ice to the ribs as needed for pain. Your emergency department visit is incomplete until you follow-up with your primary doctor. Return to the emergency department for any shortness of breath, fevers, cough, chills or for any new or worsening symptoms. Thank you very much for choosing us to provide your emergent healthcare needs. - Post Discharge Activity
[2019-08-08] MEDS ORDERED: IBUPROFEN 600 MG TABLET (FP) PO ONE (17:04)
== END 2019-08-08 17:49 | disposition home or self-care (01) ==
LOC: JERFT 15:50
DX: S22.42XA Multiple fractures of ribs, left side, initial encounter for closed fracture (principal); W01.0XXA Fall on same level from slipping, tripping and stumbling without subsequent striking against object, initial encounter; Y93.89 Activity, other specified; Y92.69 Other specified industrial and construction area as the place of occurrence of the external cause; Y99.0 Civilian activity done for income or pay; I10 Essential (primary) hypertension; E78.5 Hyperlipidemia, unspecified; Z85.51 Personal history of malignant neoplasm of bladder; Z88.2 Allergy status to sulfonamides
CPT/HCPCS: 71046-TC-FY; 71101-TC-LT-FY; 99283-25

== ENCOUNTER 2020-04-23 08:57 | Emergency (ER) | payer BC ==
[2020-04-23 09:02] VITALS: BMI 25.8
[2020-04-23] MEDS ORDERED: ACETAMINOPHEN INJECTION 100 ML IVPB ONE (09:40)
[2020-04-23] MEDS ORDERED: ACETAMINOPHEN 1000 MG/100 ML VIAL (NON FORMULARY) IVPB ONE (10:06)
[2020-04-23 10:18] LABS: BASO % 0.5 % (0-2.0); EOS % 3.3 % (0-4.5); HEMATOCRIT 43.6 % (35.4-49); HEMOGLOBIN 14.6 GM/dL (11.7-16.9); LYMPH % 18.7 % (8-40); MCH 30.4 pg (25.7-33.7); MCHC 33.5 g/dl (32.0-35.9); MEAN CELL VOLUME 90.7 fl (80-96); MEAN PLT VOLUME 9.6 fl (7.5-11.1); MONO % 7.6 % (3.8-10.2); NEUT % 69.9 % (42.8-82.8); PLATELET COUNT 139 K/MM3 (134-434); RBC 4.81 M/mm3 (4.00-5.60); RDW 12.6 % (11.9-15.9); WHITE BLOOD COUNT 7.4 K/mm3 (4.0-10.0)
[2020-04-23 10:24] LABS: EPI CELLS 3 /uL (0-25.1); HYALINE CASTS 16 /uL (0-3.1); POTASSIUM 3.9 mmol/L (3.5-5.1); URINE APPEARANCE CLOUDY; URINE BACTERIA 5906 /uL (0-1359); URINE BILIRUBIN NEGATIVE (NEGATIVE); URINE COLOR YELLOW; URINE GLUCOSE (UA) NEGATIVE (NEGATIVE); URINE KETONE NEGATIVE (NEGATIVE); URINE LEUK ESTERASE 2+ (NEGATIVE); URINE NITRITE NEGATIVE (NEGATIVE); URINE PROTEIN NEGATIVE (NEGATIVE); URINE RBC 8 /uL (0-23.9); URINE WBC 361 /uL (0-25.8)
[2020-04-23 10:26] LABS: CALCIUM 8.9 mg/dL (8.5-10.1)
[2020-04-23 10:27] LABS: ALBUMIN 3.8 g/dl (3.4-5.0); BLOOD UREA NITROGEN 13.6 mg/dL (7-18)
[2020-04-23 10:30] LABS: CREATININE 1.3 mg/dL (0.55-1.3)
[2020-04-23 10:31] LABS: BILIRUBIN,TOTAL 0.7 mg/dL (0.2-1); TOT PROT 7.4 g/dl (6.4-8.2)
[2020-04-23 12:38] VITALS: BP 164/79; PULSE 50; TEMP 98.5
== END 2020-04-23 12:37 | disposition home or self-care (01) ==
LOC: JER 08:57
PROC: 3E0333Z Introduction of Anti-inflammatory into Peripheral Vein, Percutaneous Approach (ICD-10-PCS; principal; 2020-04-23)
DX: N39.0 Urinary tract infection, site not specified (principal)
CPT/HCPCS: 36415; 72100-TC-FY; 76705-TC; 80053; 81003; 82150; 83690; 85025; 87086; 99285-25; J0131

== ENCOUNTER 2020-12-02 20:17 | Emergency (ER) | payer OTHER ==
[2020-12-02 20:25] VITALS: BP 122/73; PULSE 74; TEMP 98; BMI 25.8
== END 2020-12-02 22:04 | disposition home or self-care (01) ==
LOC: JERFT 20:17
DX: T22.112A Burn of first degree of left forearm, initial encounter (principal); L03.114 Cellulitis of left upper limb
CPT/HCPCS: 99282-25

== ENCOUNTER 2020-12-05 13:52 | Emergency (ER) | payer OTHER ==
[2020-12-05 14:03] VITALS: BP 109/62; PULSE 72; TEMP 98.3; BMI 25.8
[2020-12-05] MEDS ORDERED: MUPIROCIN CA 2% TOPICAL CREAM 15 GM TUBE TP SCH (22:00)
== END 2020-12-05 15:05 | disposition home or self-care (01) ==
LOC: JERFT 13:52
DX: Z48.00 Encounter for change or removal of nonsurgical wound dressing (principal)
CPT/HCPCS: 99281-25

== ENCOUNTER 2020-12-13 20:59 | Emergency (ER) | payer OTHER ==
[2020-12-13 21:29] VITALS: BP 165/76; PULSE 64; TEMP 98.7; BMI 25.8
== END 2020-12-13 22:00 | disposition home or self-care (01) ==
LOC: JER 20:59 → JERFT 20:59
DX: T22.212A Burn of second degree of left forearm, initial encounter (principal); Z48.00 Encounter for change or removal of nonsurgical wound dressing
CPT/HCPCS: 99281-25

== ENCOUNTER 2021-01-24 13:23 | Emergency (ER) | payer OTHER ==
[2021-01-24 13:45] VITALS: TEMP 98.2; BMI 25.8
[2021-01-24 15:34] LABS: BASO % 0.7 % (0-2.0); EOS % 4.5 % (0-4.5); HEMATOCRIT 37.8 % (35.4-49); LYMPH % 23.5 % (8-40); MCH 31.5 pg (25.7-33.7); MCHC 34.4 g/dl (32.0-35.9); MEAN CELL VOLUME 91.5 fl (80-96); MEAN PLT VOLUME 10.1 fl (7.5-11.1); MONO % 12.7 % (3.8-10.2); NEUT % 58.6 % (42.8-82.8); PLATELET COUNT 158 10^3/uL (134-434); RBC 4.13 M/mm3 (4.00-5.60); RDW 12.9 % (11.9-15.9); WHITE BLOOD COUNT 7.4 K/mm3 (4.0-10.0)
[2021-01-24 15:46] LABS: CHLORIDE 106 mmol/L (98-107); SODIUM 139 mmol/L (136-145)
[2021-01-24 15:48] LABS: ALBUMIN 3.7 g/dl (3.4-5.0); ANION GAP 6 MMOL/L (8-16); CALCIUM 8.3 mg/dL (8.5-10.1); CO2 27 mmol/L (21-32); GLUCOSE,RANDOM 90 mg/dL (74-106)
[2021-01-24 15:49] LABS: BLOOD UREA NITROGEN 13.3 mg/dL (7-18)
[2021-01-24 15:51] LABS: CREATININE 1.2 mg/dL (0.55-1.3); SGPT/ALT 18 U/L (13-61)
[2021-01-24 15:52] LABS: SGOT/AST 21 U/L (15-37)
[2021-01-24 15:53] LABS: BILIRUBIN,TOTAL 0.5 mg/dL (0.2-1); TOT PROT 7.4 g/dl (6.4-8.2)
[2021-01-24 15:54] LABS: ALK PHOS 60 U/L (45-117)
[2021-01-24 17:47] VITALS: BP 132/56; PULSE 70
== END 2021-01-24 17:47 | disposition home or self-care (01) ==
LOC: JER 13:23
DX: R07.81 Pleurodynia (principal)
CPT/HCPCS: 36415; 71045-TC-FY; 80053; 82550; 84484; 85025; 85379; 93005; 93010; 99285-25

== ENCOUNTER 2024-02-10 22:24 | Inpatient (IN) | payer MEDICARE ==
[2024-02-10] MEDS ORDERED: ACETAMINOPHEN INJECTION 100 ML ONE (23:21)
[2024-02-10] MEDS: SODIUM CHLORIDE 0.9% 1000 ML INFUS.BAG IV STA (23:42)
[2024-02-10] MEDS: ACETAMINOPHEN 1000 MG/100 ML BAG IVPB ONE (23:42)
[2024-02-10 23:53] LABS: VENOUS BASE EXCESS 1.9 mmol/L (-2-2); VENOUS O2 SATURATION 35.8 % (70-80); VENOUS PCO2 43.3 mmHg (38-52); VENOUS PH 7.411 (7.310-7.410)
[2024-02-10 23:55] LABS: BASO % 0.1 % (0-2.0); EOS % 1.6 % (0-4.5); HEMATOCRIT 36.3 % (35.4-49); HEMOGLOBIN 12.3 GM/dL (11.7-16.9); LYMPH % 8.1 % (8-40); MCHC 33.9 g/dl (32.0-35.9); MEAN CELL VOLUME 91.6 fl (80-96); MEAN PLT VOLUME 8.9 fl (7.5-11.1); MONO % 9.5 % (3.8-10.2); NEUT % 80.7 % (42.8-82.8); PLATELET COUNT 177 10^3/uL (134-434); RBC 3.97 M/mm3 (4.00-5.60); RDW 14.4 % (11.9-15.9); WHITE BLOOD COUNT 10.5 K/mm3 (4.0-10.0)
[2024-02-10] MEDS ORDERED: MECLIZINE HCL 12.5 MG TABLET ONE (23:59)
[2024-02-11] MEDS: MECLIZINE HCL 12.5 MG TABLET PO ONE (00:02)
[2024-02-11 00:12] LABS: INR 1.1 (0.83-1.09); PROTHROMBIN TIME (PATIENT) 12.6 SEC (9.7-13.0)
[2024-02-11 00:15] LABS: ACTIVATED PTT 28.7 SECONDS (25.2-36.5)
[2024-02-11 00:32] LABS: CALCIUM 8.9 mg/dL (8.5-10.1)
[2024-02-11 00:33] LABS: ALBUMIN 3.6 g/dl (3.4-5.0); BLOOD UREA NITROGEN 41.3 mg/dL (7-18)
[2024-02-11 00:36] LABS: CREATININE 2.3 mg/dL (0.55-1.3)
[2024-02-11 00:37] LABS: BILIRUBIN,TOTAL 0.5 mg/dL (0.2-1)
[2024-02-11 00:38] LABS: TOT PROT 7.6 g/dl (6.4-8.2)
[2024-02-11 01:32] LABS: HIV INTERPRETATION NEGATIVE (NEGATIVE)
[2024-02-11 02:07] LABS: EPI CELLS 13 /uL (0-25.1); HYALINE CASTS 422 /uL (0-3.1); URINE APPEARANCE Turbid; URINE BACTERIA 1431 /uL (0-1359); URINE BILIRUBIN Negative (NEGATIVE); URINE COLOR Yellow; URINE GLUCOSE (UA) Negative (NEGATIVE); URINE KETONE Negative (NEGATIVE); URINE LEUK ESTERASE Large (NEGATIVE); URINE NITRITE Negative (NEGATIVE); URINE PROTEIN 300 (NEGATIVE); URINE RBC 2025 /uL (0-23.9); URINE UROBILINOGEN 0.2 mg/dL (0.2-1.0); URINE WBC 29541 /uL (0-25.8)
[2024-02-11] MEDS ORDERED: CEFTRIAXONE 1 GM/50 ML BAG ONE (03:16)
[2024-02-11] MEDS ORDERED: VANCOMYCIN 1 GRAM (PRE-DOCKED) 1,000 MG/250 ML BAG IVPB ONE (03:50)
[2024-02-11] MEDS ORDERED: LACTATED RINGERS SOLUTION 1,000 ML/1,000 ML INFUS.BAG IV SCH (04:00)
[2024-02-11] MEDS: LACTATED RINGERS SOLUTION 1,000 ML/1,000 ML INFUS.BAG IV SCH ×5 (04:16→22:41)
[2024-02-11] MEDS: LACTATED RINGERS SOLUTION 1000 ML INFUS.BAG IV ONE ×2 (04:20)
[2024-02-11] MEDS: VANCOMYCIN 1,000 MG in DEXTROSE 5%-WATER - 250 ML IVPB ONE (04:39)
[2024-02-11] MEDS ORDERED: PANTOPRAZOLE 40 MG TABLET PO ONE (04:40)
[2024-02-11] MEDS: PANTOPRAZOLE 40 MG TABLET PO SCH (04:45)
[2024-02-11 07:10] LABS: BASO % 0.2 % (0-2.0); EOS % 1.6 % (0-4.5); HEMATOCRIT 29.4 % (35.4-49); LYMPH % 14.8 % (8-40); MCH 31.6 pg (25.7-33.7); MEAN CELL VOLUME 92.9 fl (80-96); MEAN PLT VOLUME 9.1 fl (7.5-11.1); MONO % 13.9 % (3.8-10.2); NEUT % 69.5 % (42.8-82.8); PLATELET COUNT 146 10^3/uL (134-434); RBC 3.16 M/mm3 (4.00-5.60); RDW 13.9 % (11.9-15.9); WHITE BLOOD COUNT 9.5 K/mm3 (4.0-10.0)
[2024-02-11 07:28] LABS: POTASSIUM 4.2 mmol/L (3.5-5.1)
[2024-02-11 07:29] LABS: BLOOD UREA NITROGEN 37.1 mg/dL (7-18); CALCIUM 7.8 mg/dL (8.5-10.1)
[2024-02-11] MEDS: ALLOPURINOL 100 MG TABLET (FP) PO SCH (09:40)
[2024-02-11] MEDS: HEPARIN NA (PORCINE) 5,000 UNITS/ML 1ML VIAL SQ SCH (09:40)
[2024-02-11] MEDS: IRON SUCROSE INJECTION 300 MG in SODIUM CHLORIDE 235 ML IVPB ONE (15:24)
[2024-02-11] MEDS: ATORVASTATIN CA 20 MG TABLET (FP) PO SCH (22:40)
[2024-02-12] MEDS: ACETAMINOPHEN 325 MG TABLET (FP) PO PRN (08:54)
[2024-02-12] MEDS: CEFTRIAXONE 1 GM in DEXTROSE 5%-WATER - 50 ML IVPB SCH (10:25)
[2024-02-12 11:11] LABS: BASO % 0.3 % (0-2.0); EOS % 3.7 % (0-4.5); HEMATOCRIT 28.9 % (35.4-49); HEMOGLOBIN 9.7 GM/dL (11.7-16.9); LYMPH % 13.8 % (8-40); MCH 31.1 pg (25.7-33.7); MCHC 33.6 g/dl (32.0-35.9); MEAN CELL VOLUME 92.6 fl (80-96); MEAN PLT VOLUME 9.4 fl (7.5-11.1); MONO % 10.2 % (3.8-10.2); PLATELET COUNT 137 10^3/uL (134-434); RBC 3.12 M/mm3 (4.00-5.60); RDW 13.8 % (11.9-15.9); WHITE BLOOD COUNT 8.7 K/mm3 (4.0-10.0)
[2024-02-12 11:22] LABS: POTASSIUM 4.1 mmol/L (3.5-5.1)
[2024-02-12 11:23] LABS: CALCIUM 8.5 mg/dL (8.5-10.1)
[2024-02-12 11:27] LABS: CREATININE 1.9 mg/dL (0.55-1.3)
[2024-02-12] MEDS: INDOMETHACIN 50 MG CAPSULE PO ONE (12:08)
[2024-02-12] MEDS: IRON SUCROSE INJECTION 300 MG in SODIUM CHLORIDE 235 ML IVPB ONE (13:33)
[2024-02-13 08:39] LABS: BASO % 0.1 % (0-2.0); EOS % 2.2 % (0-4.5); HEMATOCRIT 29.4 % (35.4-49); HEMOGLOBIN 9.8 GM/dL (11.7-16.9); LYMPH % 7.4 % (8-40); MCH 31.3 pg (25.7-33.7); MCHC 33.3 g/dl (32.0-35.9); MEAN CELL VOLUME 93.8 fl (80-96); MEAN PLT VOLUME 8.9 fl (7.5-11.1); NEUT % 80.3 % (42.8-82.8); PLATELET COUNT 130 10^3/uL (134-434); RBC 3.13 M/mm3 (4.00-5.60); RDW 14.1 % (11.9-15.9); WHITE BLOOD COUNT 9.1 K/mm3 (4.0-10.0)
[2024-02-13 09:10] LABS: BLOOD UREA NITROGEN 29.8 mg/dL (7-18); CALCIUM 8.4 mg/dL (8.5-10.1)
[2024-02-13] MEDS: ERTAPENEM SODIUM 1 GM in SODIUM CHLORIDE 50 ML IVPB SCH (17:51)
[2024-02-13] MEDS: ATORVASTATIN CA 20 MG TABLET (FP) PO SCH (21:40)
[2024-02-14 10:25] LABS: HEMATOCRIT 27.2 % (35.4-49); MCH 31.2 pg (25.7-33.7); MCHC 33.1 g/dl (32.0-35.9); MEAN CELL VOLUME 94.4 fl (80-96); MEAN PLT VOLUME 9.6 fl (7.5-11.1); PLATELET COUNT 127 10^3/uL (134-434); RBC 2.88 M/mm3 (4.00-5.60); RDW 14.1 % (11.9-15.9); WHITE BLOOD COUNT 8.3 K/mm3 (4.0-10.0)
[2024-02-14 10:52] LABS: POTASSIUM 4.1 mmol/L (3.5-5.1)
[2024-02-14 10:57] LABS: BLOOD UREA NITROGEN 29.8 mg/dL (7-18); CALCIUM 8.4 mg/dL (8.5-10.1)
[2024-02-14 11:00] LABS: CREATININE 2.2 mg/dL (0.55-1.3)
[2024-02-15 09:49] LABS: BASO % 0.3 % (0-2.0); EOS % 5.7 % (0-4.5); HEMATOCRIT 25.7 % (35.4-49); HEMOGLOBIN 8.5 GM/dL (11.7-16.9); LYMPH % 14.3 % (8-40); MCH 31.1 pg (25.7-33.7); MCHC 33.3 g/dl (32.0-35.9); MEAN CELL VOLUME 93.5 fl (80-96); MEAN PLT VOLUME 9.5 fl (7.5-11.1); MONO % 11.8 % (3.8-10.2); NEUT % 67.9 % (42.8-82.8); PLATELET COUNT 135 10^3/uL (134-434); RBC 2.75 M/mm3 (4.00-5.60); RDW 14.1 % (11.9-15.9); WHITE BLOOD COUNT 8.1 K/mm3 (4.0-10.0)
[2024-02-15 10:06] LABS: POTASSIUM 4.3 mmol/L (3.5-5.1)
[2024-02-15 10:07] LABS: BLOOD UREA NITROGEN 32.8 mg/dL (7-18); CALCIUM 8.5 mg/dL (8.5-10.1)
[2024-02-15 10:11] LABS: CREATININE 2.1 mg/dL (0.55-1.3)
[2024-02-15] MEDS: IRON SUCROSE INJECTION 300 MG in SODIUM CHLORIDE 235 ML IVPB ONE (11:25)
[2024-02-15] MEDS: EPOETIN ALFA-EPBX 20,000 UNIT/ML VIAL SQ ONE (11:25)
[2024-02-15] MEDS: D5-1/2NS+10 MEQ KCL - 10 MEQ/1,000 ML INFUS.BAG IV SCH (14:13)
[2024-02-16 08:43] LABS: BASO % 0.3 % (0-2.0); EOS % 3.5 % (0-4.5); HEMOGLOBIN 9.1 GM/dL (11.7-16.9); LYMPH % 12.8 % (8-40); MCH 31.7 pg (25.7-33.7); MCHC 33.7 g/dl (32.0-35.9); MEAN CELL VOLUME 94.1 fl (80-96); MEAN PLT VOLUME 9.1 fl (7.5-11.1); MONO % 12.7 % (3.8-10.2); NEUT % 70.7 % (42.8-82.8); PLATELET COUNT 143 10^3/uL (134-434); RBC 2.87 M/mm3 (4.00-5.60); RDW 13.8 % (11.9-15.9); WHITE BLOOD COUNT 9.2 K/mm3 (4.0-10.0)
[2024-02-16 09:04] LABS: POTASSIUM 4.2 mmol/L (3.5-5.1)
[2024-02-16 09:06] LABS: CALCIUM 8.1 mg/dL (8.5-10.1)
[2024-02-16 09:07] LABS: BLOOD UREA NITROGEN 26.2 mg/dL (7-18)
[2024-02-16 09:09] LABS: URIC ACID 5.6 mg/dL (2.6-7.2)
[2024-02-16 09:10] LABS: CREATININE 2.1 mg/dL (0.55-1.3)
[2024-02-17 10:18] LABS: BASO % 0.4 % (0-2.0); EOS % 2.4 % (0-4.5); HEMATOCRIT 29.3 % (35.4-49); LYMPH % 12.6 % (8-40); MCH 31.6 pg (25.7-33.7); MEAN CELL VOLUME 92.9 fl (80-96); MEAN PLT VOLUME 9.1 fl (7.5-11.1); MONO % 12.1 % (3.8-10.2); NEUT % 72.5 % (42.8-82.8); PLATELET COUNT 157 10^3/uL (134-434); RBC 3.16 M/mm3 (4.00-5.60); WHITE BLOOD COUNT 10.1 K/mm3 (4.0-10.0)
[2024-02-17 10:25] LABS: POTASSIUM 4.1 mmol/L (3.5-5.1)
[2024-02-17 10:27] LABS: CALCIUM 8.6 mg/dL (8.5-10.1)
[2024-02-17 10:28] LABS: BLOOD UREA NITROGEN 25.6 mg/dL (7-18)
[2024-02-17] MEDS: TAMSULOSIN HCL 0.4 MG CAP PO SCH (11:32)
[2024-02-17] MEDS: FINASTERIDE 5 MG TABLET (FP) PO SCH (11:32)
[2024-02-17] MEDS ORDERED: DULoxetine HCL 30 MG CAPSULE.DR PO ONE (11:46)
[2024-02-17] MEDS: DULoxetine HCL 30 MG CAPSULE.DR PO SCH (12:43)
[2024-02-17] MEDS: INDOMETHACIN 50 MG CAPSULE PO ONE (12:43)
[2024-02-17] MEDS: DULoxetine HCL 60 MG CAPSULE.DR PO SCH (12:57)
[2024-02-17 23:57] VITALS: BMI 20.1
[2024-02-18 03:11] VITALS: RESP 18
[2024-02-18 08:49] LABS: BASO % 0.4 % (0-2.0); EOS % 3.9 % (0-4.5); HEMATOCRIT 28.6 % (35.4-49); HEMOGLOBIN 9.7 GM/dL (11.7-16.9); LYMPH % 10.7 % (8-40); MCH 31.5 pg (25.7-33.7); MCHC 33.9 g/dl (32.0-35.9); MEAN CELL VOLUME 92.9 fl (80-96); MONO % 10.2 % (3.8-10.2); NEUT % 74.8 % (42.8-82.8); PLATELET COUNT 149 10^3/uL (134-434); RBC 3.08 M/mm3 (4.00-5.60); RDW 14.4 % (11.9-15.9)
[2024-02-18 09:08] LABS: POTASSIUM 4.1 mmol/L (3.5-5.1)
[2024-02-18 09:17] LABS: BLOOD UREA NITROGEN 28.4 mg/dL (7-18); CALCIUM 8.5 mg/dL (8.5-10.1)
[2024-02-18 14:32] VITALS: BP 110/64; PULSE 79; TEMP 97.8
== END 2024-02-18 18:49 | disposition home or self-care (01) | DRG 689 ==
LOC: JER 22:24 → JERBED 02-11 03:10 → OBSVTOIN 02-11 03:50 → J6S 02-11 11:00
PROVIDERS: ADMIT Internal Medicine; ATTEND Internal Medicine
DX: N13.6 Pyonephrosis (principal); E43 Unspecified severe protein-calorie malnutrition; R26.81 Unsteadiness on feet; B96.20 Unspecified Escherichia coli [E. coli] as the cause of diseases classified elsewhere; E78.5 Hyperlipidemia, unspecified; M62.81 Muscle weakness (generalized); E86.0 Dehydration; M10.9 Gout, unspecified; R00.0 Tachycardia, unspecified; D69.6 Thrombocytopenia, unspecified; I25.10 Atherosclerotic heart disease of native coronary artery without angina pectoris; R33.9 Retention of urine, unspecified; I12.9 Hypertensive chronic kidney disease with stage 1 through stage 4 chronic kidney disease, or unspecified chronic kidney disease; N18.9 Chronic kidney disease, unspecified; Z85.51 Personal history of malignant neoplasm of bladder; Z68.20 Body mass index [BMI] 20.0-20.9, adult
CPT/HCPCS: 0241U-QW; 36415; 71045-TC-FY; 76775-TC; 76856-TC; 80048; 80053; 81003; 82272; 82728; 82803; 83540; 83550; 83605; 84484; 84550; 85025; 85610; 85651; 85730; 86140; 86803; 86850; 86900; 86901; 87040; 87086; 87186; 87389; 93005; 93010; 97116-GP; 97162-GP; 99285-25; G0378; J1644; J1756